=== PATIENT | male | born 1980 | race American Indian/Alaskan Native ===

== ENCOUNTER 2017-05-05 07:52 | Observation (INO) | payer OTHER ==
[2017-05-05 08:19] VITALS: BMI 26.9
--- NOTE | 2017-05-05 08:25 | ED PDOC ---
Arrival/HPI - General Historian: Patient <Lawrence Gallardo - Last Filed: 05/05/17 14:55> - History of Present Illness Time/Duration: < week (2 days) Symptom Onset: Gradual Symptom Course: Unchanged Quality: Other (Sharp) Severity Level: Mild Activities at Onset: Light Context: Home <Rosalva Chowdhury - Last Filed: 05/05/17 18:46> - General Chief Complaint: Abdominal Pain Time Seen by Provider: 05/05/17 07:53 - History of Present Illness Narrative History of Present Illness (Text): 05/05/17 08:20 This is a 37 yo M with no sig PMH that was sent in by PMD with a 2 day history of RLQ pain. He states that the pain is sharp in nature and constant. He does admit to the pain being worse at night and there is no radiation of pain. Admits to having associated darker urine with decreased output. Denies any fevers, chills, chest pain, palpitations, sob, nausea, vomiting. States his stools have been softer but no diarrhea, and decreased PO intake. PMD: Francisco Javier (Lawrence Gallardo) Past Medical History - Provider Review Nursing Documentation Reviewed: Yes <Lawrence Gallardo - Last Filed: 05/05/17 14:55> Family/Social History - Physician Review Nursing Documentation Reviewed: Yes Family/Social History: No Known Family HX <Lawrence Gallardo - Last Filed: 05/05/17 14:55> Allergies/Home Meds <Lawrence Gallardo - Last Filed: 05/05/17 14:55> <Rosalva Chowdhury - Last Filed: 05/05/17 18:46> Allergies/Adverse Reactions: Allergies No Known Allergies Allergy (Verified 05/05/17 08:19) Home Medications: Home Meds Medication Instructions Recorded Confirmed Unobtainable 05/05/17 05/05/17 Review of Systems - Physician Review All systems were reviewed & negative as marked: Yes - Review of Systems Constitutional: Normal. absent: Fatigue, Fevers Eyes: Normal. absent: Vision Changes ENT: Normal Respiratory: Normal. absent: SOB, Cough Cardiovascular: Normal. absent: Chest Pain, Palpitations Gastrointestinal: Abdominal Pain, Stool Changes, Appetite Changes. absent: Constipation, Diarrhea, Nausea, Vomiting Genitourinary Male: Urinary Output Changes, Other (darker urine). absent: Dysuria, Frequency Musculoskeletal: Normal. absent: Arthralgias, Back Pain Skin: Normal. absent: Rash, Pruritis Neurological: Normal. absent: Headache, Dizziness Endocrine: Normal Hemo/Lymphatic: Normal Psychiatric: Normal <Lawrence Gallardo - Last Filed: 05/05/17 14:55> Physical Exam Appearance: Positive for: Non-Toxic, Uncomfortable Pain Distress: Mild Mental Status: Positive for: Alert and Oriented X 3 - Systems Exam Head: Present: Atraumatic, Normocephalic Mouth: Present: Moist Mucous Membranes Respiratory/Chest: Present: Clear to Auscultation, Good Air Exchange. No: Respiratory Distress, Accessory Muscle Use Cardiovascular: Present: Regular Rate and Rhythm, Normal S1, S2 Abdomen: Present: Tenderness (RLQ), Normal Bowel Sounds, McBurney's Point Tender. No: Distention, Peritoneal Signs, Rebound, Guarding Back: Present: Normal Inspection Upper Extremity: Present: NORMAL PULSES, Neurovascularly Intact Lower Extremity: Present: NORMAL PULSES, Neurovascularly Intact Neurological: Present: Speech Normal, Motor Func Grossly Intact Skin: Present: Warm, Dry Psychiatric: Present: Alert, Oriented x 3 <Lawrence Gallardo - Last Filed: 05/05/17 14:55> Medical Decision Making <Lawrence Gallardo - Last Filed: 05/05/17 14:55> <Rosalva Chowdhury - Last Filed: 05/05/17 18:46> ED Course and Treatment: 05/05/17 08:30 36 yo M with no PMH that presents with RLQ pain Plan: - labs, Urinalysis, Culture - CT abd/pelvis with PO contrast - Reassess and disposition 05/05/17 11:42 CT abd/pelvis as read by Dr Morgan LOWER THORAX: Unremarkable. LIVER: Unremarkable. No gross lesion or ductal dilatation. GALLBLADDER AND BILE DUCTS: Unremarkable. PANCREAS: Unremarkable. No gross lesion or ductal dilatation. SPLEEN: Unremarkable. ADRENALS: Unremarkable. No mass. KIDNEYS AND URETERS: Unremarkable. No hydronephrosis. No solid mass. VASCULATURE: Unremarkable. No aortic aneurysm. BOWEL: Oral contrast material and fecal material can be seen in the cecum. Contrast does not extend beyond this point and there is suggestion of severe mural thickening in the ascending colon. This can be seen on image 99 series 2 and coronal image 46. This could be due to colitis or a neoplastic lesion. There is some fecal material and gas in the transverse and descending colon. There is no evidence of small bowel obstruction. Clinical correlation is suggested. Colonoscopy followup may be indicated. APPENDIX: Unremarkable. Normal appendix. PERITONEUM: Small amount of ascites in the right pericolic gutter LYMPH NODES: Unremarkable. No enlarged lymph nodes. BLADDER: Unremarkable. REPRODUCTIVE: Unremarkable. BONES: No acute fracture. OTHER FINDINGS: None. IMPRESSION: Severe mural thickening in the ascending colon suspicious for underlying colitis. A neoplastic lesion is less likely. 05/05/17 14:[address] Mcintyre who agrees with admission for further work up. Will consult Dr Kwan. Discussed results with pt who is agreeable with admission (Lawrence Gallardo) In agreement with resident note, which includes further HPI details. Patient was seen and evaluated with resident, came up with plan and treatment together. 36 year old male, with no significant past medical history, who presents to the emergency department complaining of RLQ pain today. Plan is to conduct CT abdomen scan with PO contrast and lab work. On my exam, comfortable, moving bowels without diarrhea but has decreased appetite. No incarcerated hernias noted on exam, there is focal RLQ pain ddx appendicitis, colitis. Currently cv stable, comfortable at rest, nontoxic appearing. Plan to consult surgery based on focal RLQ pain. 05/05/17 09:22 CT findings reviewed with PMD and on re-exam patient with persistent focal rlq pain. Cannot exclude colitis, labs reviewed and GI consulted. IV antibiotics initiated. Case reviewed with Dr. Mcintyre. (Rosalva Chowdhury) - Lab Interpretations Lab Results: 05/05/17 08:50 05/05/17 08:50 Lab Results 05/05/17 09:00: Urine Color Yellow, Urine Appearance Clear, Urine pH 6.0, Ur Specific [place] 1.020, Urine Protein Trace H, Urine Glucose (UA) Negative, Urine Ketones 15 H, Urine Blood Negative, Urine Nitrate Negative, Urine Bilirubin Small H, Urine Urobilinogen 1.0 H, Ur Leukocyte Esterase Negative, Urine RBC Negative, Urine WBC 0 - 2, Ur Epithelial Cells 0 - 2, Amorphous Sediment Few, Urine Bacteria Many, Urine Other Uyeast 05/05/17 08:50: Sodium 137, Potassium 4.2, Chloride 100, Carbon Dioxide 29, Anion Gap 12, BUN 12, Creatinine 1.0, Est GFR ( Amer) > 60, Est GFR (Non- Af Amer) > 60, Random Glucose 92, Calcium 9.6, Total Bilirubin 0.9, AST 33, ALT 22, Alkaline Phosphatase 42, Total Protein 7.8, Albumin 4.2, Globulin 3.6, Albumin/Globulin Ratio 1.2, Lipase 73 05/05/17 08:50: WBC 7.9, RBC 4.43, Hgb 13.6 L, Hct 39.3 L, MCV 88.7, MCH 30.7, MCHC 34.6, RDW 13.6, Plt Count 287, MPV 9.4, Gran % 48.3 L, Lymph % (Auto) 16.9 L, Catron % (Auto) 11.4 H, Eos % (Auto) 22.0 H, Baso % (Auto) 1.4, Gran # 3.82, Lymph # 1.3, Catron # 0.9 H, Eos # 1.7 H, Baso # 0.11 - RAD Interpretation Radiology Orders: 05/05/17 08:24 ABDOMEN & PELVIS [ABD & PELVIS PO CONTRAST ONLY] [CT] Stat - Medication Orders Current Medication Orders: Acetaminophen (Tylenol 325mg Tab) 650 mg PO Q6H PRN PRN Reason: Fever >100.4 F Dextrose/Sodium Chloride (Dextrose 5%/0.45% Ns 1000 Ml) 1,000 mls @ 125 mls/hr IV .Q8H [facility] Metronidazole (Flagyl) 250 mg in 50 mls @ 100 mls/hr IV Q8 [facility] PRN Reason: Protocol Stop: 05/10/17 14:01 Last Admin: 05/05/17 15:22 Dose: 100 mls/hr Ceftriaxone Sodium (Rocephin 1 Gram Ivpb) 1 gm in 100 mls @ 100 mls/hr IVPB DAILY [facility] PRN Reason: Protocol Last Admin: 05/05/17 12:49 Dose: Magnesium Citrate (Citrate Of Mag) 100 ml PO Q6 [facility] Ondansetron HCl (Zofran Inj) 4 mg IVP Q6H PRN PRN Reason: Nausea/Vomiting Pantoprazole Sodium (Protonix Inj) 40 mg IVP DAILY [facility] Last Admin: 05/05/17 13:04 Dose: 40 mg Polyethylene Glycol (Miralax) 17 gm PO DAILY [facility] Simethicone (Mylicon Liq) 40 mg PO QID PRN PRN Reason: Irritable bowel symptoms Discontinued Medications Metronidazole (Flagyl) 500 mg in 100 mls @ 100 mls/hr IVPB STAT [facility] PRN Reason: Protocol Stop: 05/05/17 12:54 Ceftriaxone Sodium (Rocephin 1 Gram Ivpb) 1 gm in 100 mls @ 200 mls/hr IVPB ONCE [facility] PRN Reason: Protocol Stop: 05/05/17 12:27 Last Admin: 05/05/17 12:33 Dose: 200 mls/hr Iohexol (Omnipaque 240 (50 Ml)) Confirm Administered Dose 50 ml .ROUTE .STK-MED ONE Stop: 05/05/17 08:30 Simethicone (Mylicon Liq) 40 mg PO QID [facility] <Lawrence Gallardo - Last Filed: 05/05/17 14:55> - Scribe Statement The provider has reviewed the documentation as recorded by the Scribe <Rosalva Chowdhury - Last Filed: 05/05/17 18:46> - Scribe Statement Modesta Mak Provider Scribe Attestation: All medical record entries made by the Scribe were at my direction and personally dictated by me. I have reviewed the chart and agree that the record accurately reflects my personal performance of the history, physical exam, medical decision making, and the department course for this patient. I have also personally directed, reviewed, and agree with the discharge instructions and disposition. (Rosalva Chowdhury) Disposition/Present on Arrival - Present on Arrival Any Indicators Present on Arrival: No History of DVT/PE: No History of Uncontrolled Diabetes: No Urinary Catheter: No History of Decub. Ulcer: No - Disposition Have Diagnosis and Disposition been Completed?: Yes Disposition Time: 12:00 Patient Plan: Admission <Lawrence Gallardo - Last Filed: 05/05/17 14:55> <Rosalva Chowdhury - Last Filed: 05/05/17 18:46> - Disposition Diagnosis: Colitis Disposition: HOSPITALIZED Condition: STABLE
[2017-05-05] MEDS ORDERED: Iohexol 240 (50 ml) ONE (08:29)
[2017-05-05 09:15] LABS: URINE BILIRUBIN SMALL (NEGATIVE); URINE BLOOD NEGATIVE (NEGATIVE); URINE GLUCOSE (UA) NEGATIVE (NEGATIVE); URINE KETONE 15 mg/dL (NEGATIVE); URINE LEUKOCYTE ESTERASE NEGATIVE Leu/uL (NEGATIVE); URINE PROTEIN TRACE mg/dL (<30 mg/dL)
[2017-05-05 09:15] LABS: BASO # 0.11 K/mm3 (0.0-2.0); BASO % 1.4 % (0.0-3.0); EOS # 1.7 (0.0-0.7); GRAN # 3.82 (1.4-6.5); GRAN % 48.3 % (50.0-68.0); HEMATOCRIT 39.3 % (42.0-52.0); LYMPH # 1.3 (1.2-3.4); LYMPH % 16.9 % (22.0-35.0); MEAN CELL VOLUME 88.7 fL (80.0-105.0); MEAN CORPUSCULAR HEMOGLOBIN 30.7 pg (25.0-35.0); MEAN CORPUSCULAR HGB CONC 34.6 g/dl (31.0-37.0); MEAN PLATELET VOLUME 9.4 fl (7.0-11.0); MONO # 0.9 (0.1-0.6); MONO % 11.4 % (1.0-6.0); PLATELET COUNT 287 10^3/uL (120.0-450.0); RED CELL DISTRIBUTION WIDTH 13.6 % (11.5-14.5); WHITE BLOOD COUNT 7.9 10^3/ul (4.5-11.0)
[2017-05-05 09:18] LABS: ADD MANUAL DIFF? NO
[2017-05-05 09:20] LABS: URINE APPEARANCE CLEAR (CLEAR); URINE COLOR YELLOW (YELLOW)
[2017-05-05 09:22] LABS: ALB/GLOB RATIO 1.2 (1.1-1.8); ALKALINE PHOSPHATASE 42 U/L (38-133); ALT/SGPT 22 U/L (7-56); AST/SGOT 33 U/L (15-59); BILIRUBIN,TOTAL 0.9 mg/dL (0.2-1.3); BLOOD UREA NITROGEN 12 mg/dL (7-21); CALCIUM 9.6 mg/dL (8.4-10.5); CARBON DIOXIDE 29 mmol/L (21-33); CHLORIDE 100 mmol/L (95-110); GFR AFRICAN-AMERICAN > 60; GLUCOSE,RANDOM 92 mg/dL (70-110); LIPASE 73 U/L (23-300); POTASSIUM 4.2 mmol/L (3.6-5.0); SODIUM 137 mmol/L (132-148); TOTAL PROTEIN 7.8 g/dL (5.8-8.3)
[2017-05-05 09:37] LABS: URINE AMORPHOUS SEDIMENT FEW; URINE BACTERIA MANY (NEG); URINE EPITHELIAL CELLS 0 - 2 /hpf (0-5); URINE WBC 0 - 2 /hpf (0-6)
[2017-05-05 09:38] LABS: URINE RBC NEGATIVE /hpf (0-2)
--- NOTE | 2017-05-05 11:32 | CT ---
PROCEDURE: CT Abdomen and Pelvis without intravenous contrast HISTORY: RLQ pain COMPARISON: None. TECHNIQUE: Without contrast. Contrast Dose: Radiation dose: Total exam DLP = 385 mGy-cm. This CT exam was performed using one or more of the following dose reduction techniques: Automated exposure control, adjustment of the mA and/or kV according to patient size, and/or use of iterative reconstruction technique. FINDINGS: LOWER THORAX: Unremarkable. LIVER: Unremarkable. No gross lesion or ductal dilatation. GALLBLADDER AND BILE DUCTS: Unremarkable. PANCREAS: Unremarkable. No gross lesion or ductal dilatation. SPLEEN: Unremarkable. ADRENALS: Unremarkable. No mass. KIDNEYS AND URETERS: Unremarkable. No hydronephrosis. No solid mass. VASCULATURE: Unremarkable. No aortic aneurysm. BOWEL: Oral contrast material and fecal material can be seen in the cecum. Contrast does not extend beyond this point and there is suggestion of severe mural thickening in the ascending colon. This can be seen on image 99 series 2 and coronal image 46. This could be due to colitis or a neoplastic lesion. There is some fecal material and gas in the transverse and descending colon. There is no evidence of small bowel obstruction. Clinical correlation is suggested. Colonoscopy followup may be indicated. APPENDIX: Unremarkable. Normal appendix. PERITONEUM: Small amount of ascites in the right pericolic gutter LYMPH NODES: Unremarkable. No enlarged lymph nodes. BLADDER: Unremarkable. REPRODUCTIVE: Unremarkable. BONES: No acute fracture. OTHER FINDINGS: None. IMPRESSION: Severe mural thickening in the ascending colon suspicious for underlying colitis. A neoplastic lesion is less likely.
[2017-05-05] MEDS ORDERED: cefTRIAXone 1 gm 100 ML IVPB STA (11:53)
[2017-05-05] MEDS ORDERED: metroNIDAZOLE IV 500 mg/100 ml 500 MG/100 ML BAG IVPB STA (11:55)
[2017-05-05] MEDS ORDERED: cefTRIAXone 1 gm 1 GM/100 ML BAG IVPB STA (11:58)
[2017-05-05] MEDS ORDERED: POLYETHYLENE GLYCOL 3350 17 GM/Dose PACKET PO SCH (12:45)
[2017-05-05] MEDS: cefTRIAXone 1 gm 1 GM/100 ML BAG IVPB SCH (12:49)
--- NOTE | 2017-05-05 14:15 | CP.PCM.CON ---
<McfarlandVenturarema - Last Filed: 05/05/17 16:09> History of Present Illness - History of Present Illness History of Present Illness: General Surgery Consult Note for Dr. Shi 37 year old male with no significant past medical history [place] [facility] with right lower quadrant abdominal pain. Patient reports this pain started suddenly around 11pm on Monday05/03/17. Patient reports the RLQ abdominal pain had a sudden onset, sharp in quality, non radiating, rates it 10/ 10 intensity. Patient tried taking over the counter gas-x which improved the pain the pain. Any movement exacerbates the pain. Patient also complains of decreased appetite. Patient did not have nausea, vomiting, diarrhea, or constipation. Patient went to his PMD a day after was prescribed phenohytro which still did not resolve his pain. Patient's pain continued to worsen and decided to come to the ED for an evaluation. He further denies having headache, weakness, fever, chills, shortness of breath, chest pain, heartburn, recent change of diet, past abdominal surgeries, or sick contacts. In the ED, patient' s CT scan revealed severe mural thickening ascending colon, suspicious for colitis. Surgical consultation was requested to evaluate patient's colitis. Review of Systems - Constitutional Constitutional: As Per HPI. absent: Chills, Fever, Increased Appetite, Weakness - EENT Eyes: As Per HPI. absent: Loss of Vision Ears: As Per HPI. absent: Dizziness Nose/Mouth/Throat: As Per HPI. absent: Nasal Congestion - Cardiovascular Cardiovascular: As Per HPI. absent: Chest Pain, Chest Pain at Rest, Chest Pain with Activity, Edema, Syncope - Respiratory Respiratory: As Per HPI. absent: Cough, Dyspnea, Wheezing - Gastrointestinal Gastrointestinal: As Per HPI. absent: Constipation, Diarrhea, Nausea, Vomiting Additional comments: RLQ pain - Genitourinary Genitourinary: absent: As Per HPI, Urinary Incontinence, Urinary Frequency, Urinary Hesitance - Musculoskeletal Musculoskeletal: As Per HPI. absent: Back Pain, Deformity, Numbness, Tingling - Integumentary Integumentary: As Per HPI. absent: Lesions, Rash, Swelling - Neurological Neurological: As Per HPI. absent: Dizziness, Numbness, Tingling, Vertigo - Psychiatric Psychiatric: As Per HPI. absent: Confusion, Depression - Endocrine Endocrine: As Per HPI - Hematologic/Lymphatic Hematologic: As Per HPI Past Patient History - Infectious Disease Hx of Infectious Diseases: None - Past Social History Smoking Status: Never Smoked - PSYCHIATRIC Hx Substance Use: No - SURGICAL HISTORY Hx Surgeries: Yes Other/Comment: b/l ankle surgery Meds Allergies/Adverse Reactions: Allergies Allergy/AdvReac Type Severity Reaction Status Date / Time No Known Allergies Allergy Verified 05/05/17 08:19 - Medications Medications: Current Medications Acetaminophen (Tylenol 325mg Tab) 650 mg PO Q6H PRN PRN Reason: Fever >100.4 F Dextrose/Sodium Chloride (Dextrose 5%/0.45% Ns 1000 Ml) 1,000 mls @ 125 mls/hr IV .Q8H [facility] Metronidazole (Flagyl) 250 mg in 50 mls @ 100 mls/hr IV Q8 [facility] PRN Reason: Protocol Stop: 05/10/17 14:01 Ceftriaxone Sodium (Rocephin 1 Gram Ivpb) 1 gm in 100 mls @ 100 mls/hr IVPB DAILY [facility] PRN Reason: Protocol Last Admin: 05/05/17 12:49 Dose: Not Given Ondansetron HCl (Zofran Inj) 4 mg IVP Q6H PRN PRN Reason: Nausea/Vomiting Pantoprazole Sodium (Protonix Inj) 40 mg IVP DAILY [facility] Last Admin: 05/05/17 13:04 Dose: 40 mg Polyethylene Glycol (Miralax) 17 gm PO DAILY [facility] Physical Exam - Constitutional Appears: Non-toxic, No Acute Distress - Head Exam Head Exam: ATRAUMATIC, NORMAL INSPECTION - Eye Exam Eye Exam: EOMI, Normal appearance - ENT Exam ENT Exam: Mucous Membranes Moist - Neck Exam Neck exam: Positive for: Normal Inspection - Respiratory Exam Respiratory Exam: Clear to Auscultation Bilateral, NORMAL BREATHING PATTERN. absent: Wheezes, Respiratory Distress - Cardiovascular Exam Cardiovascular Exam: REGULAR RHYTHM, +S1, +S2 - GI/Abdominal Exam GI & Abdominal Exam: Normal Bowel Sounds, Soft, Tenderness (RLQ tenderness (2cm below and 4cm to the right of umbilucus), negative McBurney's point tenderness, Phelps's sign). absent: Bruit, Distended, Hernia - Extremities Exam Extremities exam: Positive for: normal capillary refill, normal inspection, pedal pulses present - Back Exam Back exam: NORMAL INSPECTION - Neurological Exam Neurological exam: Alert, CN II-XII Intact, Oriented x3 - Psychiatric Exam Psychiatric exam: Normal Affect, Normal Mood - Skin Skin Exam: Dry, Intact, Normal Color, Warm Results - Vital Signs Recent Vital Signs: Last Vital Signs Temp 99.3 F 05/05/17 08:31 Pulse 92 H 05/05/17 12:00 Resp 16 05/05/17 12:00 BP 127/87 05/05/17 12:00 Pulse Ox 100 05/05/17 12:00 - Labs Result Diagrams: 05/05/17 08:50 05/05/17 08:50 Assessment & Plan - Assessment and Plan (Free Text) Assessment: 37 year old male with no significant past medical history presents with RLQ abdominal pain was found to have ascending colitis Plan: Ascending colitis -No surgical intervention indicated at this time -Continue medical management -Magnesium Citrate and gas-x -Surgery will continue to follow -D/w with attending <Eren Shi - Last Filed: 05/05/17 20:56> Meds - Medications Medications: Current Medications Acetaminophen (Tylenol 325mg Tab) 650 mg PO Q6H PRN PRN Reason: Fever >100.4 F Dextrose/Sodium Chloride (Dextrose 5%/0.45% Ns 1000 Ml) 1,000 mls @ 125 mls/hr IV .Q8H [facility] Last Admin: 05/05/17 20:35 Dose: 125 mls/hr Metronidazole (Flagyl) 250 mg in 50 mls @ 100 mls/hr IV Q8 [facility] PRN Reason: Protocol Stop: 05/10/17 14:01 Last Admin: 05/05/17 15:22 Dose: 100 mls/hr Ceftriaxone Sodium (Rocephin 1 Gram Ivpb) 1 gm in 100 mls @ 100 mls/hr IVPB DAILY [facility] PRN Reason: Protocol Last Admin: 05/05/17 12:49 Dose: Not Given Magnesium Citrate (Citrate Of Mag) 100 ml PO Q6 [facility] Last Admin: 05/05/17 18:56 Dose: 100 ml Ondansetron HCl (Zofran Inj) 4 mg IVP Q6H PRN PRN Reason: Nausea/Vomiting Pantoprazole Sodium (Protonix Inj) 40 mg IVP DAILY [facility] Last Admin: 05/05/17 13:04 Dose: 40 mg Polyethylene Glycol (Miralax) 17 gm PO DAILY [facility] Simethicone (Mylicon Liq) 40 mg PO QID PRN PRN Reason: Irritable bowel symptoms Results - Vital Signs Recent Vital Signs: Last Vital Signs Temp 98.6 F 05/05/17 20:11 Pulse 81 05/05/17 20:11 Resp 18 05/05/17 20:11 BP 128/80 05/05/17 20:11 Pulse Ox 100 05/05/17 12:00 - Labs Result Diagrams: 05/05/17 08:50 05/05/17 08:50 Assessment & Plan - Assessment and Plan (Free Text) Assessment: Dx Significant Cecal Distention /constipation-gas Unclear re Radiologist opinion of asc colon inflamation(Colitis) Concur with the plan outlined above This consult done under my direct supervision Chelsie Shi MD FACS
--- NOTE | 2017-05-05 14:47 | CON ---
DATE: 05/05/2017 The patient was seen and examined in the Emergency Room. The chart was reviewed. REQUEST FOR CONSULTATION: For colitis. HISTORY OF PRESENT ILLNESS: This is a 37-year-old male with a past medical history of hypertension. The patient was taking antihypertensives, but states it is now controlled with diet and history of prediabetes. Came to the Emergency Room with complaints of right lower quadrant pain. He states that it started Monday night into morning, which the pain became intense. He described it as a sharp pain. It radiates to his back. He denies any chills , nausea, vomiting. His last bowel movement was yesterday and it was soft. Denies any melena or bright red blood. The patient denies ever having this type of pain before. Normally, he moves his bowels regularly, at least 1-2 times a day. Never had endoscopy or colonoscopy. He only recalls Monday night having a bowl of chili that he made. States that he had not had beans in over a year and also recalls having broccoli smoothie. It was pureed in the drain cleaner. Denies any recent sick contacts. The patient had a CT scan of abdomen and pelvis with oral contrast and is reporting mural thickening in the ascending colon with some fecal material and gas in the transverse and descending colon. No evidence of bowel obstruction. This thickening is suggestive of colitis or a neoplastic lesion, which is less likely. PAST MEDICAL HISTORY: As stated above, hypertension, controlled now by diet, prediabetes. PAST SURGICAL HISTORY: He had 2 ankle surgeries. Denies any cardiac or abdominal procedures. MEDICATIONS: Takes vitamins like plant extracts. SOCIAL HISTORY: Denies smoking. Drinks alcohol socially. Denies any recreational drug use. FAMILY HISTORY: Denies. ALLERGIES: No known drug allergies. REVIEW OF SYSTEMS: Systems reviewed with positive findings, see HPI. VITAL SIGNS: Temperature 99.3, blood pressure 127/87, pulse 92, respirations 16 , 100% on room air. LABORATORIES: WBC is 7.9, H and H is 13.6 and 39.3, platelets is 287. Sodium is 137, K 4.2, BUN 12, creatinine is 1.0. LFTs are within normal limits. Lipase is 73. Urine negative for leukocyte esterase, bilirubin small, ketones 15, trace of protein. PHYSICAL EXAMINATION: HEENT: Sclera is anicteric. NECK: Supple. CARDIAC: S1, S2. LUNGS: Clear. ABDOMEN: With bowel sounds, soft, not distended. He does have right lower quadrant tenderness. There is no rebound or guarding. EXTREMITIES: Positive pedal pulses, no edema. Negative for calf tenderness. NEUROLOGIC: Awake, alert, and oriented. ASSESSMENT/PLAN: A 37-year-old male with a past medical history of prediabetes and hypertension, controlled by diet. Came to the hospital with complaint of right lower quadrant pain. The patient is status post CAT scan, noted to have intramural thickening or inflammation in ascending colon, possible colitis. Other differentials could be infectious versus inflammatory. Consider Crohn's disease, ischemia or even neoplasm, which is less likely. We will request for stool culture. The patient is on IV antibiotics, ceftriaxone and Flagyl. Continue IV fluids and the patient can start on a clear liquid diet. The patient is on Zofran for nausea. Thank you for this consult and for allowing us to participate in your patient's care. Also, patient would benefit from an elective colonoscopy, that was discussed with the patient, when inflammation has resolved. The patient was seen and case discussed with Dr. Kwan. Na MEYERS cc: [id number] TT: 05/05/2017 14:46:15 Confirmation # [id number] Dictation # [id number] [id number]
[2017-05-05] MEDS ORDERED: Simethicone 40 mg/0.6 ml Liquid (30 ml) PO PRN (15:09)
[2017-05-05] MEDS: metroNIDAZOLE IV 250mg/50 ml 250 MG/50 ML BAG IV SCH ×2 (15:22→22:07)
[2017-05-05] MEDS ORDERED: Simethicone 40 mg/0.6 ml Liquid (30 ml) PO SCH (18:00)
[2017-05-05] MEDS: Magnesium Citrate Oral SOL (300 ml) PO SCH (18:56)
[2017-05-05 20:23] VITALS: PULSE 81
[2017-05-05] MEDS: Dextrose 5%/0.45% NS 1,000 ML IV SCH (20:35)
--- NOTE | 2017-05-05 21:13 | HP ---
HISTORY OF PRESENT ILLNESS: The patient is a 37-year-old black male who was seen in office yesterday . He states he ate chili beans yesterday followed by [employer] and after a couple of hours he started to have excruciating belly pain, did not have diarrhea, was little nauseous, afraid to eat anything, because any food was making his pain worse, so I advised him to stay on liquid diet. I will give hi m Bentyl to take as needed and he was told if pain gets worse, he should go to Emergency Room since h e was slightly tender in the right lower quadrant area to rule out appendicitis. The patient stated his pain got worse, so he came to the ER. PAST MEDICAL HISTORY: He has no significant past medical history. ALLERGIES: He is not allergic to any medications. MEDICATIONS AT HOME: He was on Bentyl 10 mg q. 6 p.r.n. SOCIAL HISTORY: He is . Denies smoking or drinking, just socially drinks. REVIEW OF SYSTEMS: Significant for abdominal discomfort, more so on the right lower quadrant. PHYSICAL EXAMINATION: GENERAL: He is awake and alert, communicative. VITAL SIGNS: He is afebrile, pulse 92, respirations 16, blood pressure 127/87. LUNGS: Bilateral fair airflow, no rhonchi or crackle. HEART: S1, S2 audible. No murmur. ABDOMEN: He does have palpable discomfort and guarding in the right lower quadrant area. NEUROLOGIC: The patient is awake and alert, communicative. LABORATORY DATA: WBC 7.9, hemoglobin 13.6, hematocrit 39.3, platelet 287. Chemistry: Sodium 137, p otassium 4.2, chloride 100, CO2 of 29. BUN 12, creatinine 1.0, blood sugar of 92. LFTs are within n ormal limits. Urine shows small bilirubin and ketones. CT scan of the abdomen and pelvis shows aleah re mural thickening in the ascending colon, suspicious for underlying colitis, neoplastic lesion is l ikely. ASSESSMENT AND PLAN: 1. Ascending colitis. 2. Constipation. 3. Dehydration. PLAN: The patient will be admitted. We will give IV fluid, IV Protonix, will start on IV antibiotic , and give mild laxative. Will follow up his electrolytes, CBC and CMP in a.m. Yris Mcintyre MD cc: [id number] TT: 05/05/2017 21:12:23 pascual
--- NOTE | 2017-05-05 23:54 | CON ---
DATE: 05/05/2017 ADDENDUM: SUBJECTIVE: This patient was seen and evaluated earlier today. This is an addendum to the GI consultation report dictated by Na Herrera APN. The CAT scan was reviewed. PHYSICAL EXAMINATION: On examination, patient still has significant tenderness in the right colon. Clinically, it is more suggestive of acute gastroenteritis. Mostly likely suggestive of infectious type of colitis. The differential diagnosis should include inflammatory bowel disease. The patient did not have any previous episodes of abdominal pain before. IMAGING: The CT shows significant inflammatory changes in the right colon specifically and, with the tenderness, the reasonable thing to do at this point is to continue with the clear liquid diet and antibiotics. PLAN: Will continue to slowly advance the diet based on the clinical response. I am slightly concerned about the amount of inflammation in the right colon. Would prefer the patient to go slowly and will keep the patient for at least 24 hours, again, on a clear liquid diet with antibiotics. Then, slowly advance the diet. The patient would benefit from the elective colonoscopic evaluation. Palmer Kwan MD cc: [phone] TT: 05/05/2017 23:53:47 Confirmation # [id number] Dictation # [id number] ricardo LENNON
[2017-05-06] MEDS: Dextrose 5%/0.45% NS 1,000 ML IV SCH ×2 (00:04→05:00)
[2017-05-06] MEDS: Magnesium Citrate Oral SOL (300 ml) PO SCH ×2 (00:12→06:01)
[2017-05-06] MEDS: metroNIDAZOLE IV 250mg/50 ml 250 MG/50 ML BAG IV SCH ×2 (06:02→14:06)
[2017-05-06 07:45] VITALS: BP 122/75; RESP 20; TEMP 98.3; O2SAT 97
[2017-05-06] MEDS: cefTRIAXone 1 gm 1 GM/100 ML BAG IVPB SCH (09:35)
--- NOTE | 2017-05-06 10:08 | CP.PCM.PN ---
Subjective - Date & Time of Evaluation Date of Evaluation: 05/06/17 Time of Evaluation: 08:00 - Subjective Subjective: Surgery: Dr. Shi Pt seen and examined. No acute overnight events. States he is feeling a lot better this morning and admits to having several loose BMs. Denies abdominal pain at this time. Denies N/V, F/C. Objective - Vital Signs/Intake and Output Vital Signs (last 24 hours): Temp Pulse Resp BP Pulse Ox 98.3 F 81 20 122/75 97 05/06/17 07:30 05/06/17 07:30 05/06/17 07:30 05/06/17 07:30 05/06/17 07:30 Intake and Output: 05/06/17 05/06/17 06:59 18:59 Intake Total 720 Balance 720 - Medications Medications: Current Medications Acetaminophen (Tylenol 325mg Tab) 650 mg PO Q6H PRN PRN Reason: Fever >100.4 F Dextrose/Sodium Chloride (Dextrose 5%/0.45% Ns 1000 Ml) 1,000 mls @ 125 mls/hr IV .Q8H [facility] Last Admin: 05/06/17 05:00 Dose: 125 mls/hr Metronidazole (Flagyl) 250 mg in 50 mls @ 100 mls/hr IV Q8 [facility] PRN Reason: Protocol Stop: 05/10/17 14:01 Last Admin: 05/06/17 06:02 Dose: 100 mls/hr Ceftriaxone Sodium (Rocephin 1 Gram Ivpb) 1 gm in 100 mls @ 100 mls/hr IVPB DAILY [facility] PRN Reason: Protocol Last Admin: 05/06/17 09:35 Dose: 100 mls/hr Ondansetron HCl (Zofran Inj) 4 mg IVP Q6H PRN PRN Reason: Nausea/Vomiting Pantoprazole Sodium (Protonix Inj) 40 mg IVP DAILY [facility] Last Admin: 05/06/17 09:35 Dose: 40 mg Polyethylene Glycol (Miralax) 17 gm PO DAILY [facility] Last Admin: 05/06/17 09:35 Dose: 17 gm Simethicone (Mylicon Liq) 40 mg PO QID PRN PRN Reason: Irritable bowel symptoms - Constitutional Appears: Well, No Acute Distress - Head Exam Head Exam: ATRAUMATIC, NORMOCEPHALIC - ENT Exam ENT Exam: Mucous Membranes Moist - Respiratory Exam Respiratory Exam: NORMAL BREATHING PATTERN - Cardiovascular Exam Cardiovascular Exam: RRR - GI/Abdominal Exam GI & Abdominal Exam: Soft. absent: Distended, Tenderness, Rebound - Extremities Exam Extremities Exam: absent: Tenderness - Neurological Exam Neurological Exam: Alert, Awake, Oriented x3 - Skin Skin Exam: Dry, Intact, Warm Assessment and Plan - Assessment and Plan (Free Text) Assessment: 37M with abdominal pain r/o colitis Plan: - pt tolerating CLD; advance as tolerated - further recs as per GI - no further surgical intervention needed at this time - d/w Dr. Jose Guadalupe Patino, PGY-2 Surgery
--- NOTE | 2017-05-06 10:26 | CP.PCM.PCO ---
Physician Communication Note - Physician Communication Note Physician Communication Note: + BM/DC or Colonoscopy?
--- NOTE | 2017-05-06 14:34 | DS ---
The patient is a 37-year-old seen and examined, doing well. He said he is feeling a lot better. Abd ominal pain is almost gone. PHYSICAL EXAMINATION: VITAL SIGNS: He is afebrile, pulse 81, respirations 20, blood pressure 122/75. LUNGS: Bilateral fair airflow, no rhonchi or crackle. HEART: S1, S2 audible. ABDOMEN: Soft, nontender, no rebound, no guarding. NEUROLOGIC: The patient is awake and alert. Able to communicate. ASSESSMENT AND PLAN: 1. Ascending colitis. 2. Constipation. 3. Dehydration. PLAN: This patient is clinically stable. We will advance diet to soft diet and after seen by Dr. Ra helms, the patient can be discharged home on p.o. Flagyl and Cipro and he will follow up with me vinh Kwna as outpatient. Yris Mcintyre MD cc: [phone] TT: 05/06/2017 14:33:37 jn
--- NOTE | 2017-05-06 18:36 | PN ---
DATE: 05/06/2017 SUBJECTIVE: This patient was seen and evaluated earlier today. The patient is feeling much better. His abdominal discomfort has significantly improved. The patient is still on a clear liquid diet. PHYSICAL EXAMINATION: VITAL SIGNS: Temperature is 98.3, pulse 81, blood pressure 122/75. HEENT: Atraumatic, anicteric. NECK: Supple. HEART: S1, S2 heard. LUNGS: Bilateral air entry present. ABDOMEN: Soft. There is significant improvement of the tenderness in the abdomen on the right side, only minimal tenderness present on deep palpation. EXTREMITIES: No edema, no cyanosis. LABORATORY DATA: There are no recent labs. IMPRESSION: This is a 37-year-old patient admitted with acute onset of abdominal pain mainly. The right side of the colon was more thickened. I reviewed as he has really don'tseethatlike gastroenteritis. The patient did eat some chili at home and a few hours later on he had this discomfort. The CT shows some thickening in the right colon. The patient also has significant eosinophil count elevation, etiology is unclear. LFTs are improving. The patient is clinically improving with IV antibiotics, shows this is probably infectious colitis. Other differential diagnosis should include inflammatory bowel disease. Never had any problems in the past medically, except he has hypertension. I did have a detailed discussion with the patient. Will advance the diet today and complete the antibiotics for about another 7 days. The patient is going to be followed up with Dr. Mcintyre and advised to follow up in our office in about a months' time. The patient may benefit from elective colonoscopic evaluation. Thank you very much for allowing us to participate in the care of the patient. Palmer Kwan MD cc: [phone] TT: 05/06/2017 18:35:24 Confirmation # [id number] Dictation # [id number] heath LENNON
== END 2017-05-06 16:55 | disposition home or self-care (01) ==
LOC: ED 07:52 → INTOOBSV 11:54 → ERH 11:54 → 5RNO 13:51
PROVIDERS: ADMIT Internal Medicine; ATTEND Internal Medicine
DX: A09 Infectious gastroenteritis and colitis, unspecified (principal); K59.00 Constipation, unspecified; E86.0 Dehydration; I10 Essential (primary) hypertension; R73.03 Prediabetes
CPT/HCPCS: 74176; 80053; 81001; 83690; 85025; 87040; 87086; 96365; 96375; 99284; C9113; G0378; J0696; J7042; Q9966